=== PATIENT | male | born 1985 | race Caucasian/White ===

== ENCOUNTER 2018-06-18 11:38 | Emergency (ER) | payer MEDICAID, OTHER ==
[~2018-06-18] VITALS: Wt 97.0 kg
[2018-06-18 11:41] VITALS: BP 151/102; PULSE 89; RESP 16
[2018-06-18] MEDS ORDERED: KETOROLAC 60 MG INJ IM STA (13:07)
[2018-06-18] MEDS ORDERED: IBUP-1542 PO (13:08)
--- NOTE | 2018-06-18 13:17 | ERD ---
ER Documentation Chief Complaint Chief Complaint LEFT ARM/SIDE PAIN X2 DAYS HPI 32-year-old male with no past medical history presents with history of neck and arm pain since Saturday. States that he woke up and felt pain in his neck as well as pain and numbness in his left arm. Denies any history of trauma. Denies any focal weakness, dizziness, gait instability, or headache. Has not tried anything for the pain. Denies past medical history. Denies allergies. Denies medications. Denies surgeries. Smokes 10 cigarettes a day. ROS All systems reviewed and are negative except as per history of present illness. Medications Home Meds Active Scripts Ibuprofen* (Motrin*) 600 Mg Tab, 600 MG PO Q6 for neck pain, #30 TAB 0 Refills Prov:MISBAH MENEZES 06/18/18 Allergies Allergies: Uncoded Allergies: ANTIBIOTIC (Allergy, Unknown, rashes, 06/18/18) unable to remember name PMhx/Soc Medical and Surgical Hx: pt denies Medical Hx, pt denies Surgical Hx FmHx Family History: No diabetes, No coronary disease, No other Physical Exam Vitals Vital Signs Date Temp Pulse Resp B/P (MAP) Pulse Ox O2 O2 Flow FiO2 Time Delivery Rate 06/18/18 97.5 89 16 151/102 95 11:41 (118) Physical Exam General: Well developed, will nourished. No acute distress. Neck: Limited extension. Full flexion. No midline cervical tenderness. No bony step-offs or deformities noted. Heart: RR w/o murmur, rubs, or gallops. Lungs: Clear to auscultation bilaterally w/o wheezes, crackles, rhonchi. Symmetric rise and fall. Equal breath sounds. Neuro: CN II through XII intact. Rapid alternating movement intact. No cerebellar or gait deficits. 5/5 strength and sensation in all extremities. Alert and oriented x3. Results 24 hrs Current Medications Medications Dose Sig/Luis Start Time Status Last (Trade) Ordered Route PRN Stop Time Admin Dose Reason Admin Ketorolac 60 mg ONCE STAT 06/18/18 DC 06/18/18 Tromethamine IM 13:07 13:13 (Toradol) 06/18/18 13:08 Procedures/MDM ER Course: Patient given toradol IM. MDM: 32-year-old male with no past medical history presents with history of neck and arm pain since Saturday. States that he woke up and felt pain in his neck as well as pain and numbness in his left arm. Denies any history of trauma. Denies any focal weakness, dizziness, gait instability, or headache. Has not tried anything for the pain. I have low suspicion of neck fracture or CVA based on patient's history and exam. Most likely cervical muscle inflammation impinging a nerve. Patient given Toradol IM in the ER and discharged with prescription for ibuprofen. Patient discharged with strict ER precautions. Patient advised to follow up with PMD. All questions answered at discharge. Departure Diagnosis: Primary Impression: Neck pain Additional Impression: Pain of left arm Condition: Stable Patient Instructions: Neck Pain, No Trauma Referrals: [facility] YOU HAVE RECEIVED A MEDICAL SCREENING EXAM AND THE RESULTS INDICATE THAT YOU DO NOT HAVE A CONDITION THAT REQUIRES URGENT TREATMENT IN THE EMERGENCY DEPARTMENT. FURTHER EVALUATION AND TREATMENT OF YOUR CONDITION CAN WAIT UNTIL YOU ARE SEEN IN YOUR DOCTORS OFFICE WITHIN THE NEXT 1-2 DAYS. IT IS YOUR RESPONSIBILITY TO MAKE AN APPOINTMENT FOR FOLOW-UP CARE. IF YOU HAVE A PRIMARY DOCTOR --you should call your primary doctor and schedule an appointment IF YOU DO NOT HAVE A PRIMARY DOCTOR YOU CAN CALL OUR PHYSICIAN REFERRAL HOTLINE AT IF YOU CAN NOT AFFORD TO SEE A PHYSICIAN YOU CAN CHOSE FROM THE FOLLOWING [facility] [address] [facility]. [facility] [address] [facility]. [facility] [address] [facility] [facility] [address] [facility]. [facility] [address] [facility]. [facility]. [address] Additional Instructions: FOLLOW UP WITH YOUR PRIMARY CARE PHYSICIAN TOMORROW.Return to this facility if you are not improving as expected. If you experience any headache, blurry vision, dizziness, numbness or weakness, return to hospital. MISBAH MENEZES Jun 18, 2018 13:17
== END 2018-06-18 13:56 | disposition home or self-care (01) ==
LOC: FTE 11:38
DX: M54.2 Cervicalgia (principal)
CPT/HCPCS: 96372; J1885; Z7502